=== PATIENT | male | born 1975 | race Caucasian/White ===

== ENCOUNTER → 2017-12-20 | Outpatient (CLI) | payer OTHER | END | disposition home or self-care (01) | LOC: RAD 17:02 | DX: S62.600A Fracture of unspecified phalanx of right index finger, initial encounter for closed fracture (principal); M79.89 Other specified soft tissue disorders; X58.XXXA Exposure to other specified factors, initial encounter; Y93.89 Activity, other specified; Y92.89 Other specified places as the place of occurrence of the external cause; Y99.8 Other external cause status | CPT/HCPCS: 73140 ==

== ENCOUNTER → 2018-07-29 | Outpatient (CLI) | payer OTHER ==
--- NOTE | 2018-07-29 17:00 | RAD ---
PA and lateral chest radiograph. History: Cough for one week. Possible pneumonia. Comparison: March 03, 2016. Findings: Cardiomediastinal silhouette is within normal limits for size. Bilateral lung hoyos appear clear without evidence of infiltrate, effusion, or pneumothorax. Lung hoyos again appear hyperinflated, raising possibility of obstructive lung disease. Impression: 1. No acute cardiopulmonary process. Electronically signed by: Wilson Pyle MD (07/29/2018 4:57 PM) [place] [id number]
== END | disposition home or self-care (01) ==
LOC: RAD 16:32
PROVIDERS: ATTEND Family Medicine
DX: J40 Bronchitis, not specified as acute or chronic (principal)
CPT/HCPCS: 71046